=== PATIENT | male | born 1945 | race Caucasian/White ===

== ENCOUNTER 2020-08-17 09:20 | Day surgery (SDC) | payer MEDICARE, BC ==
[2020-08-17] MEDS ORDERED: Sodium Chloride 0.9% 1,000 ML IV SCH (10:45)
[2020-08-17] MEDS ORDERED: Propofol 200 MG/20 ML SDV ONE ×2 (10:51→12:17)
[2020-08-17] MEDS ORDERED: fentaNYL 100 MCG/2 ML SDV ONE (10:51)
--- NOTE | 2020-08-17 15:21 | OR ---
DATE OF PROCEDURE: 08/17/2020 SURGEON: Stan Arshad MD PROCEDURES: 1. Esophagogastroduodenoscopy. 2. Colonoscopy. FINDINGS: 1. Duodenal ulcer. 2. Significant tortuous sigmoid colon. 3. Extensive diverticulosis distributed in a classic pattern, but most densely concentrated in the sigmoid colon. COMPLICATIONS: None. [employer]: None. PREOPERATIVE DIAGNOSES: Screening colonoscopy/unintentional weight loss/anemia. POSTOPERATIVE DIAGNOSES: Screening colonoscopy/unintentional weight loss/anemia. RISKS: Risks, benefits, alternatives, limitations including but not limited to infection, bleeding, false positives, and false negatives were explained to the patient and he wished to proceed. PROCEDURE IN DETAIL: The patient was placed in left lateral decubitus position. The EGD scope was introduced and advanced atraumatically to the second part of the duodenum. No evidence of duodenitis or ulceration was noted. Within the duodenal bulb itself, the patient had a duodenal ulcer. This was not actively bleeding. This was biopsied x1. No abnormalities were noted within the stomach itself. No gastritis. The GE junction was normal. The esophagus was normal. The air was removed from the stomach. Digital rectal exam was performed next. The scope was introduced and advanced atraumatically to the ileocecal valve. The terminal ileum was interrogated. No abnormalities were noted. The scope was brought back to the remainder of the colon. No polyps. No masses. The diverticulosis was described as extensive with most densely concentrated in the sigmoid colon without evidence of diverticulitis or bleeding. The sigmoid colon itself was incredibly tortuous. No abnormalities on retroflexion. The prep was acceptable. Approximately 90% of the luminal surface could be seen. Greater than 8 minutes was spent removing the scope. The patient tolerated the procedure well. Stan Arshad MD /[id number]
== END 2020-08-17 13:36 | disposition home or self-care (01) ==
LOC: JP.SDS 09:20
PROVIDERS: ATTEND Surgery
DX: K29.80 Duodenitis without bleeding (principal); K57.30 Diverticulosis of large intestine without perforation or abscess without bleeding; K63.89 Other specified diseases of intestine; I12.9 Hypertensive chronic kidney disease with stage 1 through stage 4 chronic kidney disease, or unspecified chronic kidney disease; N18.9 Chronic kidney disease, unspecified; D63.1 Anemia in chronic kidney disease; E78.5 Hyperlipidemia, unspecified
CPT/HCPCS: 43239; 45378; J2704; J3010; J7030

== ENCOUNTER 2020-09-27 06:19 | Day surgery (SDC) | payer MEDICARE, BC ==
[2020-09-27] MEDS ORDERED: Sodium Chloride 0.9% 1,000 ML IV SCH (07:00)
[2020-09-27] MEDS ORDERED: Propofol 200 MG/20 ML SDV ONE (07:36)
[2020-09-27] MEDS ORDERED: fentaNYL 100 MCG/2 ML SDV ONE (07:36)
--- NOTE | 2020-09-28 10:17 | OR ---
DATE OF PROCEDURE: 09/27/2020 SURGEON: Stan Arshad MD PROCEDURE PERFORMED: Esophagogastroduodenoscopy. FINDINGS: Complete resolution of duodenal ulcer. COMPLICATIONS: None. [employer]: None. ANESTHESIA: MAC. PREOPERATIVE DIAGNOSES: History of duodenal ulcer. POSTOPERATIVE DIAGNOSIS: History of duodenal ulcer. RISKS: Risks, benefits, alternatives, and limitations including, but not limited to infection, bleeding, perforation, false positives, and false negatives were explained to the patient, and he wished to proceed. PROCEDURE IN DETAIL: The patient was placed in left lateral decubitus position. The EGD scope was introduced and advanced atraumatically into the second part of the duodenum. Within the duodenum itself, especially in the bulb, the area was investigated. No evidence of active ulcer was noted. The area of previous ulcer had healed well. No other abnormalities in the stomach or esophagus. The patient tolerated the procedure well. Stan Arshad MD /[id number]
== END 2020-09-27 09:10 | disposition home or self-care (01) ==
LOC: JP.SDS 06:19
PROVIDERS: ATTEND Surgery
DX: Z09 Encounter for follow-up examination after completed treatment for conditions other than malignant neoplasm (principal); I12.9 Hypertensive chronic kidney disease with stage 1 through stage 4 chronic kidney disease, or unspecified chronic kidney disease; N18.9 Chronic kidney disease, unspecified; F17.200 Nicotine dependence, unspecified, uncomplicated; Z87.11 Personal history of peptic ulcer disease
CPT/HCPCS: J2704; J3010; J7030

== ENCOUNTER → 2024-09-27 | Day surgery (SDC) | payer MEDICARE, BC ==
[~2024-09-27] MED LIST: Propofol 200 MG/20 ML SDV ONE; fentaNYL 50 MCG/ML SDV ONE
[2024-09-27 08:59] LABS: INR 2.3
[2024-09-27] MEDS: Lactated Ringers 1,000 ML IV SCH (10:58)
== END ==
LOC: JP.SDS 09-20 07:45
PROVIDERS: ATTEND Surgery
DX: R63.4 Abnormal weight loss (principal); R68.81 Early satiety; I12.9 Hypertensive chronic kidney disease with stage 1 through stage 4 chronic kidney disease, or unspecified chronic kidney disease; N18.30 Chronic kidney disease, stage 3 unspecified; F17.200 Nicotine dependence, unspecified, uncomplicated; Z87.11 Personal history of peptic ulcer disease
CPT/HCPCS: 36415; 43235; 85610; J2704; J3010; J7120